=== PATIENT | female | born 1975 | race Two or more races ===

== ENCOUNTER → 2020-05-08 | Outpatient (CLI) | payer OTHER ==
--- NOTE | 2020-05-08 17:36 | RAD ---
INDICATION: Reason: LEFT ANKLE PAIN FOLLOWING FOOT INJURY 11/2019. PAINFUL BONY PROMINENCE. / Spl. In structions: / History: COMPARISON: None. IMPRESSION: Left ankle: 3 views obtained. No evidence of malalignment. Seen only on one image there is a vertical ly oriented lucency at the distal fibula. This could be secondary to a prominent trabecula but would correlate with point tenderness at this site to ensure that this is not from a nondisplaced fracture. There is a suspected small joint effusion. Electronically signed by: Nabor Jean MD (05/08/2020 5:34 PM) [id number]
== END ==
LOC: RAD 12:49
PROVIDERS: ATTEND Family Medicine
DX: M25.572 Pain in left ankle and joints of left foot (principal)
CPT/HCPCS: 73610